=== PATIENT | male | born 1955 | race Caucasian/White ===

== ENCOUNTER 2018-08-22 09:57 | Emergency (ER) | payer BC, OTHER, SELFPAY ==
[2018-08-22 11:28] LABS: Absolute Lymphocytes (CBC) 0.6 K/uL (0.7-4.9); Absolute Monocytes 0.5 K/uL (0.1-1.3); Absolute Neutrophil 6.7 K/uL (1.8-8.0); Basophils % 0.5 % (0-1.3); Eosinophils % 0.9 % (0-4.4); Hematocrit 51.6 % (39.6-49.0); Lymphocytes % 7.4 % (15.3-44.8); MPV 7.9 fL (7.6-11.3); Monocytes % 6.7 % (3.3-12.3); RBC Red Blood Cell Count 5.98 M/uL (4.33-5.43)
[2018-08-22 11:32] LABS: Protime INR 1.04
[2018-08-22 12:20] LABS: ALT/SGPT 45 U/L (12-78); AST/SGOT 20 U/L (15-37); Albumin 3.8 g/dL (3.4-5.0); Alkaline Phosphatase 61 U/L (45-117); BUN Blood Urea Nitrogen 20 mg/dL (7-18); Bicarbonate 27 mmol/L (21-32); Bilirubin Direct 0.3 mg/dL (0-0.2); Bilirubin Total 0.8 mg/dL (0.2-1.0); Glucose Level 89 mg/dL (74-106); Potassium 4.4 mmol/L (3.5-5.1); Protein, Total 7.5 g/dL (6.4-8.2); Sodium Level 138 mmol/L (136-145)
[2018-08-22 12:40] LABS: Barbiturates NEGATIVE (NEGATIVE); Benzodiazepines NEGATIVE (NEGATIVE); Cocaine NEGATIVE (NEGATIVE); METHAMPHETAM NEGATIVE (NEGATIVE); Methadone NEGATIVE (NEGATIVE); Opiates NEGATIVE (NEGATIVE); Phencyclidine NEGATIVE (NEGATIVE); THC Cannibis NEGATIVE (NEGATIVE)
--- NOTE | 2018-08-22 13:42 | EKG ---
Test Date: 2018-08-22 Test Time: 10:59:52 [employer]: [employer] MEASUREMENT RESULTS: Intervals: Rate: 69 CO: 162 QRSD: 88 QT: 356 QTc: 381 [place]: P: 54 CO: 162 QRS: -2 T: 32 INTERPRETIVE STATEMENTS: Normal sinus rhythm Nonspecific ST abnormality Abnormal ECG Compared to ECG 01/15/2016 06:51:24 ST (T wave) deviation now present Electronically Signed On 08-22-18 13:37:49 ACCOUNTING ADMINISTRATOR by Parth Hunter
--- NOTE | 2018-08-22 13:54 | EDPHYS ---
Physician Documentation [facility] Name: Gabe Stack Age: 63 yrs Sex: Male : 1955 Arrival Date: 08/22/2018 Time: 09:59 Bed 26 Private MD: Thang Pickard E ED Physician Bailee Darden HPI: 08/22 10:59 This 63 yrs old Male presents to ER via Ambulatory with complaints of ma2 Suicidal Ideation. 11:30 This 63 yrs old Male presents to ER via Ambulatory with complaints of ma2 Suicidal Ideation. 11:30 The patient presents to the emergency department with anxiety, homicidal ideation. ma2 Onset: The symptoms/episode began/occurred gradually, 3 day(s) ago. Past psychiatric history: Prior diagnosis: depression. Associated signs and symptoms: Pertinent negatives: anxiety, depression. Associated signs and symptoms: Pertinent negatives: abdominal pain, chest pain, chills, delusions, hallucinations, homicidal ideation, palpitations, shortness of breath, substance abuse. Severity of symptoms: At their worst the symptoms were severe in the emergency department the symptoms are unchanged. Historical: - Allergies: 10:25 Codeine; aj1 - Home Meds: 10:25 lisinopril Oral [Active]; cholesterol medicine [Active]; anxiety medicine [Active]; aj1 - PMHx: 10:25 Depression; Hypertension; Anxiety; Hyperlipidemia; aj1 - PSHx: 10:25 Cholecystectomy; aj1 - Immunization history:: Flu vaccine is not up to date. - Social history:: Smoking status: Patient/guardian denies using tobacco, Patient uses Patient/guardian denies using alcohol, street drugs, The patient lives with family. - Ebola Screening: : Patient denies travel to an Ebola-affected area in the 21 days before illness onset. - Family history:: not pertinent. ROS: 11:30 Constitutional: Negative for fever, chills, and weight loss, Cardiovascular: Negative ma2 for chest pain, palpitations, and edema, Respiratory: Negative for shortness of breath, cough, wheezing, and pleuritic chest pain, Abdomen/GI: Negative for abdominal pain, nausea, diarrhea, and constipation, Skin: Negative for injury, rash, and discoloration. 11:30 Psych: Positive for anxiety, depression, suicide gesture, suicidal ideation. 11:30 All other systems are negative. Exam: 11:30 Constitutional: This is a well developed, well nourished patient who is awake, alert, ma2 and in no acute distress. Chest/axilla: Normal chest wall appearance and motion. Nontender with no deformity. No lesions are appreciated. Cardiovascular: Regular rate and rhythm with a normal S1 and S2. No gallops, murmurs, or rubs. Normal PMI, no JVD. No pulse deficits. Respiratory: Lungs have equal breath sounds bilaterally, clear to auscultation and percussion. No rales, rhonchi or wheezes noted. No increased work of breathing, no retractions or nasal flaring. Abdomen/GI: Soft, non-tender, with normal bowel sounds. No distension or tympany. No guarding or rebound. No evidence of tenderness throughout. 11:30 Psych: Behavior/mood is suicidal, depressed, Affect is calm. Vital Signs: 10:25 BP 131 / 96; Pulse 100; Resp 18; Temp 98.0; Pulse Ox 98% on R/A; Weight 84.82 kg (R); aj1 Height 6 ft. 0 in. (182.88 cm) (R); Pain 0/10; 14:39 BP 130 / 81; Pulse 81; Resp 20; Temp 98.6; Pulse Ox 99% ; lt1 10:25 Body Mass Index 25.36 (84.82 kg, 182.88 cm) aj1 MDM: 10:07 Patient medically screened. [facility] 11:49 Differential diagnosis: high risk SI, lives alone, male has gun has a plan no family, ma2 severely depressed, has no home. 13:52 Data reviewed: vital signs, nurses notes. Counseling: I had a detailed discussion with ma2 the patient and/or guardian regarding: the historical points, exam findings, and any diagnostic results supporting the discharge/admit diagnosis, the presence of at least one elevated blood pressure reading (>120/80) during this emergency department visit. ED course: accepted by dr. West to be transferred. 08/22 10:44 Order name: Acetaminophen [facility] 08/22 10:44 Order name: Basic Metabolic Panel [facility] 08/22 10:44 Order name: CBC with Diff; Complete Time: 13:51 [facility] 08/22 10:44 Order name: ETOH Level; Complete Time: 13:51 [facility] 08/22 10:44 Order name: Hepatic Function; Complete Time: 13:51 ma2 08/22 10:44 Order name: PT-INR; Complete Time: 13:51 ma2 08/22 10:35 Order name: Diet Finger Food; Complete Time: 10:36 em1 08/22 10:44 Order name: Ptt, Activated; Complete Time: 13:51 ma2 08/22 10:44 Order name: Salicylate; Complete Time: 13:51 ma2 08/22 10:44 Order name: Urine Drug Screen; Complete Time: 13:51 ma2 08/22 10:44 Order name: EKG; Complete Time: 10:45 ma2 08/22 10:44 Order name: Acetaminophen Level; Complete Time: 13:51 EDMS 08/22 10:45 Order name: Basic Metabolic Panel; Complete Time: 13:51 EDMS 08/22 12:37 Order name: Urine Dipstick--Ancillary (enter results) 08/22 10:44 Order name: EKG - Nurse/Tech; Complete Time: 11:30 ma2 08/22 10:44 Order name: IV Saline Lock; Complete Time: 11:29 ma2 08/22 10:44 Order name: Labs collected and sent; Complete Time: 11:29 ma2 08/22 10:44 Order name: Urine Dipstick-Ancillary (obtain specimen); Complete Time: 12:26 ma2 Administered Medications: No medications were administered Disposition: 08/22/18 13:53 Transfer ordered to Other Acute Care Facility. Diagnosis is Suicidal ideations. - Reason for transfer: Higher level of care. - Accepting physician is Dr. West. - Condition is Stable. - Problem is new. - Symptoms are unchanged. Signatures: Dispatcher [employer] EDKellie Hardy RN RN aj1 Bailee Darden MD MD ma2 Bessy Colon RN RN tl3 Corrections: (The following items were deleted from the chart) 15:09 13:53 08/22/2018 13:53 Transfer ordered to Other Acute Care Facility. Diagnosis is tl3 Suicidal ideations. Reason for transfer: Higher level of care. Accepting physician is Dr. West. Condition is Stable. Problem is new. Symptoms are unchanged. ma2
--- NOTE | 2018-08-22 13:54 | ER ---
Nurse's Notes [facility] Name: Gabe Stack Age: 63 yrs Sex: Male : 1955 Arrival Date: 08/22/2018 Time: 09:59 Bed 26 Private MD: Thang Pickard E Diagnosis: Suicidal ideations Presentation: 08/22 10:21 Presenting complaint: Patient states: He went to the doctor today to get something to aj help him sleep. Reports that he has been struggling with anxiety and depression for years now. States "I just get to the point where I want to give up, shoot myself" Reports that he started taking anxiety medication a month ago but it has not helped him. Patient also reports difficulty sleeping, states that he has only been getting 4 hours a night, then he wakes up and is unable to get back to sleep. Transition of care: patient was not received from another setting of care. Onset of symptoms was 2018. Risk Assessment: Do you want to hurt yourself or someone else? Patient reports desire/thoughts of hurting themselves or someone else. Provider notified. Initial Sepsis Screen: Does the patient meet any 2 criteria? No. Patient's initial sepsis screen is negative. Does the patient have a suspected source of infection? No. Patient's initial sepsis screen is negative. Care prior to arrival: None. 10:21 Method Of Arrival: Ambulatory [facility] 10:21 Acuity: WAI 2 aj1 Triage Assessment: 10:25 General: Appears in no apparent distress. Behavior is cooperative, anxious, crying. aj1 Pain: Denies pain. Historical: - Allergies: 10:25 Codeine; aj1 - Home Meds: 10:25 lisinopril Oral [Active]; cholesterol medicine [Active]; anxiety medicine [Active]; aj1 - PMHx: 10:25 Depression; Hypertension; Anxiety; Hyperlipidemia; aj1 - PSHx: 10:25 Cholecystectomy; aj1 - Immunization history:: Flu vaccine is not up to date. - Social history:: Smoking status: Patient/guardian denies using tobacco, Patient uses Patient/guardian denies using alcohol, street drugs, The patient lives with family. - Ebola Screening: : Patient denies travel to an Ebola-affected area in the 21 days before illness onset. - Family history:: not pertinent. Screenin:28 Abuse screen: Denies threats or abuse. Denies injuries from another. Nutritional aj1 screening: No deficits noted. Tuberculosis screening: No symptoms or risk factors identified. Assessment: 10:28 General: Appears in no apparent distress. Behavior is cooperative, anxious, crying. aj1 Pain: Denies pain. Neuro: Level of Consciousness is awake, alert, obeys commands, Oriented to person, place, time, situation. Cardiovascular: Patient's skin is warm and dry. Respiratory: Airway is patent Respiratory effort is even, unlabored, Respiratory pattern is regular, symmetrical. GI: No signs and/or symptoms were reported involving the gastrointestinal system. : No signs and/or symptoms were reported regarding the genitourinary system. EENT: No signs and/or symptoms were reported regarding the EENT system. Derm: No signs and/or symptoms reported regarding the dermatologic system. Skin is pink, warm \\T\\ dry. normal. Musculoskeletal: No signs and/or symptoms reported regarding the musculoskeletal system. Circulation, motion, and sensation intact. 11:30 Reassessment: Patient appears in no apparent distress at this time. No changes from aj1 previously documented assessment. Patient and/or family updated on plan of care and expected duration. Pain level reassessed. Patient is alert, oriented x 3, equal unlabored respirations, skin warm/dry/pink. 12:28 Reassessment: Patient appears in no apparent distress at this time. No changes from aj1 previously documented assessment. Patient and/or family updated on plan of care and expected duration. Pain level reassessed. Patient is alert, oriented x 3, equal unlabored respirations, skin warm/dry/pink. Patient is resting comfortably. 13:52 Reassessment: Nurse to nurse report given to BONNIE Lui at [facility]. aj1 Psych: 10:27 Subjective: Patient's mood is sad, hopeless. Objective: Patient is cooperative, Speech aj1 is slow, soft, Affect is appropriate. Interventions: Removed personal items and placed in bag. Patient placed in hospital gown. Searched person for dangerous items. Belonging list filled out. Suicide Risk Assessment: Sad Person Scale: Sex of patient: Male: Score 1 point. Age of patient: Score 0 point if patient falls outside of specified age parameters. Depression: Score 1 point if signs of depression are present. Previous Attempt: Score 0 point if patient has not previously attempted suicide. Substance Abuse: Score 0 point if patient does not abuse alcohol or drugs. Rational Thinking: Score 0 point if patient has rational thinking. Social Support: Score 1 point if social support is lacking and/or unavailable. Organized Plan: Score 1 point if patient had a plan in place. Relationship: Score 1 point if patient is , , , or for a single male Chronic Sickness: Score 0 point if patient does not have a chronic illness, debilitating, or severe disorder. TOTAL POINTS: If total points are 5-6, proposed clinical action is to strongly consider hospitalization, depending upon confidence in the follow-up arrangement. Implement suicide precautions. Safety Checks: Personal items have been removed. Door is open. No visitors are present at this time. Pt denies substance abuse. Commitment: Patient will be a voluntary commitment. Vital Signs: 10:25 BP 131 / 96; Pulse 100; Resp 18; Temp 98.0; Pulse Ox 98% on R/A; Weight 84.82 kg (R); aj1 Height 6 ft. 0 in. (182.88 cm) (R); Pain 0/10; 14:39 BP 130 / 81; Pulse 81; Resp 20; Temp 98.6; Pulse Ox 99% ; lt1 10:25 Body Mass Index 25.36 (84.82 kg, 182.88 cm) aj1 ED Course: 09:59 Patient arrived in ED. mr 10:00 Thang Pickard MD is Private Physician. mr 10:07 Bailee Darden MD is Attending Physician. ma2 10:21 Kellie Jules, BONNIE is Primary Nurse. aj1 10:24 Triage completed. aj1 10:25 Arm band placed on Patient placed in an exam room. aj1 10:28 Patient has correct armband on for positive identification. Placed in gown. Bed in low aj1 position. Patient is placed in psych hold. 10:28 No provider procedures requiring assistance completed. aj1 10:34 Safety checks: Items removed: yes. Door open/sign placed on door: yes. Family/friend em1 present: no. Sitter present: Yes. Warm blanket given. Pillow given. Diet tray ordered. 10:47 Safety checks: Items removed: yes. Door open/sign placed on door: yes. Family/friend em1 present: no. Sitter present: Yes. 10:59 Safety checks: Items removed: yes. Door open/sign placed on door: yes. Family/friend em1 present: no. Sitter present: Yes. 11:17 Safety checks: Items removed: yes. Door open/sign placed on door: yes. Family/friend em1 present: no. Sitter present: Yes. 11:17 Initial lab(s) drawn, by me, sent to lab. Inserted saline lock: 20 gauge in right em1 antecubital area, using aseptic technique. Blood collected. 11:25 EKG done, by ultrasound technol. reviewed by Bailee Darden MD. at1 11:30 Safety checks: Items removed: yes. Door open/sign placed on door: yes. Family/friend em1 present: no. Sitter present: Yes. 11:47 Safety checks: Items removed: yes. Door open/sign placed on door: yes. Family/friend em1 present: no. Sitter present: Yes. 12:05 Safety checks: Items removed: yes. Door open/sign placed on door: yes. Family/friend em1 present: no. Sitter present: Yes. 12:15 Safety checks: Items removed: yes. Door open/sign placed on door: yes. Family/friend em1 present: no. Sitter present: Yes. 12:30 Safety checks: Items removed: yes. Door open/sign placed on door: yes. Family/friend em1 present: no. Sitter present: Yes. 12:36 Diet tray given. em1 12:46 Safety checks: Items removed: yes. Door open/sign placed on door: yes. Family/friend em1 present: no. Sitter present: Yes. 13:00 Safety checks: Items removed: yes. Safety checks: Door open/sign placed on door: yes. lt1 Family/friend present: no. Sitter present: Yes. 13:15 Safety checks: Items removed: yes. Safety checks: Door open/sign placed on door: yes. lt1 Family/friend present: no. Sitter present: Yes. 13:27 faxed chart to hal prasad, talked to Aneta. bd 13:28 contacted [facility] to send a screener to evaluate pt. bd 13:30 Safety checks: Items removed: yes. Door open/sign placed on door: yes. Family/friend lt1 present: no. Sitter present: Yes. 13:45 Safety checks: Items removed: yes. Safety checks: Door open/sign placed on door: yes. lt1 Family/friend present: no. Sitter present: Yes. 14:00 Safety checks: Items removed: yes. Door open/sign placed on door: yes. Family/friend lt1 present: yes. Sitter present: Yes. 14:15 Safety checks: Items removed: yes. Door open/sign placed on door: yes. Family/friend lt1 present: no. Sitter present: Yes. 14:30 Safety checks: Items removed: yes. Door open/sign placed on door: yes. Family/friend lt1 present: no. Sitter present: Yes. 14:45 Safety checks: Items removed: yes. Door open/sign placed on door: yes. Family/friend lt1 present: no. Sitter present: Yes. 14:52 Report given to BONNIE Pollack. aj1 15:00 Safety checks: Items removed: yes. Safety checks: Door open/sign placed on door: yes. lt1 Family/friend present: no. Sitter present: Yes. Administered Medications: No medications were administered Outcome: 13:53 ER care complete, transfer ordered by . xenia 15:09 Patient left the ED. tl3 Signatures: Mayra Hidalgo Angela, RN RN aj1 Adalberto, Billie Leach, Eleno 1 Jen Lance, golf player assistant EKG Tat1 Bailee Darden MD MD ma2 Bessy Colon RN RN tl3 Carlotta Avalos lt1 Corrections: (The following items were deleted from the chart) 13:01 01:00 Safety checks: Items removed: yes. Door open/sign placed on door: yes. lt1 Family/friend present: no. Sitter present: Yes. lt1
[2018-08-22 14:45] LABS: Urine Blood NEGATIVE (NEG); Urine Glucose NEGATIVE (NEG); Urine Protein NEGATIVE (NEG); Urine Specific Gravity 1.025 (1.005-1.030); Urine pH 5.5 (5.0-7.0)
[2018-08-22 16:49] VITALS: BP 130/81; TEMP 98.6; O2SAT 99
== END 2018-08-22 15:09 ==
LOC: ER 09:57
DX: R45.851 Suicidal ideations (principal); R45.850 Homicidal ideations; F41.9 Anxiety disorder, unspecified; F32.9 Major depressive disorder, single episode, unspecified; I10 Essential (primary) hypertension; E78.5 Hyperlipidemia, unspecified; Z88.5 Allergy status to narcotic agent
CPT/HCPCS: 36415; 80048; 80076; 80307; 80320; 80329; 81003; 85025; 85610; 85730; 93005; 99284

== ENCOUNTER 2020-08-27 09:30 | Day surgery (SDC) | payer OTHER ==
[2020-08-22 12:04] LABS: Absolute Lymphocytes (CBC) 1.1 K/uL (0.7-4.9); Basophils % 0.6 % (0-1.3); Hematocrit 49.5 % (39.6-49.0); Lymphocytes % 16.2 % (15.3-44.8); MPV 7.9 fL (7.6-11.3); Protime INR 1.01; RBC Red Blood Cell Count 5.65 M/uL (4.33-5.43)
[2020-08-22 12:17] LABS: Potassium 4.4 mmol/L (3.5-5.1)
--- NOTE | 2020-08-22 12:30 | RAD REPORT ---
EXAM DESCRIPTION: RAD - Chest Pa And Lat (2 Views) - 08/22/2020 11:33 am CLINICAL HISTORY: pre procedure, pending bladder stone removal procedure COMPARISON: Portable December 2015 TECHNIQUE: Frontal and lateral views of the chest were obtained. FINDINGS: The lungs are clear. Interstitial pattern matches comparison. Diaphragm is flattened. Hea rt size is normal and central vasculature is within normal limits. No pleural effusion or pneumothor ax seen. No acute bony finding noted. No aortic abnormality. No suspicious change from comparison . IMPRESSION: No acute cardiopulmonary process.
[~2020-08-27 09:30] MED LIST: AMPICILLIN SODIUM 2 GM in NA CHLORIDE 0.9% 100 ML IVPB SCH; Gentamicin Inj 240 MG in NA CHLORIDE 0.9% 100 ML IV SCH
[2020-08-27] MEDS ORDERED: Ringers Lactate 1,000 ML IV ONE ×2 (10:39→12:53)
[2020-08-27] MEDS ORDERED: FENTANYL CITR 100 MCG/2 ML ONE ×2 (11:09→12:33)
[2020-08-27] MEDS ORDERED: propofoL 200 MG/20 ML VIAL IV ONE (11:09)
[2020-08-27] MEDS ORDERED: MIDAZOLAM HCL 2 MG/2 ML INJ ONE (11:09)
[2020-08-27] MEDS ORDERED: LIDOCAINE 1% MPF 2 ML AMPULE ONE (11:13)
[2020-08-27] MEDS ORDERED: EPHEDRINE SULF 50 MG/ML VIAL ONE (12:50)
[2020-08-27] MEDS ORDERED: ROCURONIUM 50 MG/5 ML VIAL IV ONE (13:01)
[2020-08-27] MEDS ORDERED: Phenylephrine HCl 10 MG/ML 1 ML VIAL ONE (13:11)
[2020-08-27] MEDS ORDERED: NS 0.9% VIAL 10 ML ONE (13:11)
[2020-08-27] MEDS ORDERED: GLYCOPYRROLATE 0.2 MG/ML SYR ONE (14:09)
[2020-08-27] MEDS ORDERED: NEOSTIGMINE 1 MG/ML -5 ML ONE (14:11)
[2020-08-27] MEDS ORDERED: KETOROLAC 30 MG/ML INJ ONE (14:18)
[2020-08-27] MEDS ORDERED: dexAMETHasone 10 MG/ML VIAL ONE (14:18)
[2020-08-27] MEDS: MEPERIDINE HCL 25 MG/ML SYR ONE ×2 (14:19→14:24)
[2020-08-27] MEDS ORDERED: Oxycodone HCl/Acetaminophen 1 TAB TAB PO PRN (14:20)
[2020-08-27] MEDS ORDERED: ONDANSETRON 4 MG/2 ML VIAL ONE (14:31)
[2020-08-27 14:48] VITALS: BP 117/70
[2020-08-27] MEDS ORDERED: OPIUM/BELLADONNA SUPPOS (30-16.2 MG) PR ONE (15:03)
[2020-08-27 16:03] VITALS: TEMP 97; O2SAT 97
[2020-08-27] MEDS ORDERED: HYDROCODONE/APAP 7.5/325 MG TAB ONE (16:06)
--- NOTE | 2020-08-27 21:32 | OP ---
Surgeon: CARLOS LEROY Preoperative Diagnoses: 1. Benign prostatic hypertrophy with obstructive lower urinary tract symptoms. 2. Bladder calculi, number greater than 8 seen, largest approximately 1.5-2 cm in diameter, total volume greater than 12-15 cm of stone burden. Postoperative Diagnoses: 1. Benign prostatic hypertrophy with obstructive lower urinary tract symptoms. 2. Bladder calculi, number greater than 8 seen, largest approximately 1.5-2 cm in diameter, total volume greater than 12-15 cm of stone burden. Principle Procedures: 1. Holmium laser cystolitholapaxy. 2. Bipolar transurethral resection of the prostate. Indication For Procedure: Mr. Stack presented to [facility]rology Clinic with elevated PSA and bothersome lower urinary symptoms. He did not improve significantly with medical therapy and so underwent a cystoscopy, which revealed the presence of massive four lobar BPH with intravesical projection abutting the ureteral orifices and the presence of multiple bladder calculi as well as a left lateral wall bladder diverticulum, which housed several of the calculi. He was counseled on the need for surgical approach, and after a prostate biopsy confirmed the absence of malignancy, he was prepared to proceed today. Procedure In Detail: The patient was consented in the preoperative holding area before being transferred to the operative suite where general anesthesia was induced. He was given ampicillin and gentamicin IV antimicrobial prophylaxis and pneumo boots were provided for DVT prophylaxis. He was placed in the lithotomy position, padded and secured to the table appropriately. His genitalia were prepped using Hibiclens and he was draped in standard fashion. The case was begun using urethral sounds to dilate the meatus and fossa navicularis to 30-Rwandan. Then, using a visual obturator, the 26-Rwandan Olympus bipolar resectoscope sheath was inserted via the urethra and up and over a significantly elevated median bar in order to enter the bladder alongside the intravesically projecting median lobe. The bladder was briefly surveyed, and as had been previously noted, there were multiple bladder calculi. The largest about 2 cm in diameter and so many calculi that the total stone volume was likely greater than 12-15 cm. Additionally, within the diverticulum in the left lateral wall, there were multiple additional stones noted. Initially to use the stone thermal molder device, the stones were so hard that they caused the stone pressure device to break. As a result, I employed the holmium laser with a 550 nm laser fiber and power settings of 1 joule and 25 Hz in order to fragment the larger stones. Once the larger stones were fragmented and I progressed toward the diverticulum where the more moderately and smaller sized stones were sitting, I decreased the power to 0.3 joules and 25 Hz to completely dust those stones. Multiple rounds of cystolitholapaxy as well as Ellik evacuation of the stone material was required before his bladder was completely freed of stone. In fact, before I could complete removing the stones because the median lobe would deflect rather the laser fiber out of the line of direction desired, I had to employ the bipolar resection loop in order to remove the intravesical component of the median lobe before I could complete fragmenting all of the stones. However, once this was done, I then turned my attention back to the bipolar TURP. Then using the large thick bipolar loop, I then resected the entirety of the median bar down to the level of the verumontanum and removed the right lateral lobe as well as right lateral anterior overhang fulgurating along the way. I then resected the left lateral lobe and any left lateral anterior overhang. At the level of the verumontanum, any intraurethral projecting component of the lateral lobes was resected until a nice trough could be seen from the verumontanum into the bladder neck. All prostate chips were Ellik evacuated from the bladder, and the entire surface of the prostatic fossa was carefully fulgurated with the bladder decompressed and the prostate fossa not stretched in order to cauterize any bleeding. Again, due to the significant size of his prostate, 95 g, it took several minutes of resection in order to completely adequately open the fossa. However, once this was done, the clinical appearance was excellent. As a result, with his bladder filled again with saline, I placed a 24-Rwandan 3-way Matos catheter into his bladder with ease with 50 cc of sterile water in the balloon. The catheter was placed to traction and he was taken out of the lithotomy position before being awakened from general anesthesia. He was then transferred to a stretcher and to the recovery room in good condition. Complications: None. Discharge Disposition: He will be discharged home to continue on his course of Augmentin antimicrobial prophylaxis prescribed preoperatively. He will also be given a prescription for Percocet for pain management. He should follow up on either Wednesday or Wednesday at his discretion for a voiding trial with nurse practitioner, Hernan in the office and subsequently with me 1-2 weeks later or 3 weeks later for discussion of the pathology of the resection and interval assessment. ADELA/SAMANTHA Voice ID: [id number] Report ID: [id number] MTDD
== END 2020-08-27 17:00 | disposition home or self-care (01) ==
LOC: OR 09:30
PROVIDERS: ATTEND Urology
PROC: 0TCB8ZZ Extirpation of Matter from Bladder, Via Natural or Artificial Opening Endoscopic (ICD-10-PCS; principal; 2020-08-27 11:15)
PROC: 0VT08ZZ Resection of Prostate, Via Natural or Artificial Opening Endoscopic (ICD-10-PCS; 2020-08-27 11:15)
DX: N40.1 Benign prostatic hyperplasia with lower urinary tract symptoms (principal); N21.0 Calculus in bladder; Z20.822 Contact with and (suspected) exposure to COVID-19
CPT/HCPCS: 93005; 87088; 85025; 87086; 80048; 36415; 85610; 88300; 88305; 87077; 87186; 82360; 71046; 52318; 52601; U0002; J2704; J2370; J1580; J2250; J3010 ×2; J1100; J2175; J2001; J2710; J7120 ×2; J2405; J0290

== ENCOUNTER 2021-02-24 09:56 | Observation (INO) | payer OTHER ==
--- OUTSIDE RECORDS SUMMARY | 2021-02-24 10:00 | XMS REPORT | Continuity of Care Document ---
:1955 Author Organization [facility] t Address [address] [place] [address] Care Team Providers Name Role Phone Nasreen YAP Attending Clinician Problems This patient has no known problems. Allergies, Adverse Reactions, Alerts Allergy Allergy Status Severity Reaction(s) Onset Inactive Treating Comm ents Source Name Type Date Date Clinician codiene Adverse Active Info Not [facility] Reaction Available [facility] Medications Ordered Filled Start Stop Current Ordering Indication Dosage Frequency Signature Comments Components Source Medication Medication Date Date Medication? Clinician (SIG) Name Name Lisinopril Lisinopril Yes Allison [address] [facility] Sertraline Sertraline Yes Allison [address] [facility] HCl HCl [facility] Trazodone Trazodone Yes Allison [address] [facility] HCl HCl Baylis at bedtime [facility] Procedures This patient has no known procedures. Encounters Start End Encounter Admission Attending Care Care Encounter Source Date/Time Date/Time Type Type Clinicians Facility Department ID 2021-01-22 2021-01-22 Outpatient [facility] [id number] [facility] 2021-01-20 2021-01-20 [facility] [id number] 2020-10-03 2020-10-03 Out[facility] [id number] [facility] 2020-09-27 2020-09-27 Outpatient [facility] [id number] [facility] 2020-09-05 2020-09-05 Outpatient [facility] [id number] [facility] 2020-09-03 2020-09-03 Outpatient [facility] [id number] [facility] 2020-09-02 2020-09-02 Outpatient [facility] [id number] [facility] 2020-08-30 2020-08-30 Outpatient [facility] [id number] [facility] 2020-08-12 2020-08-12 Outpatient [facility] [id number] [facility] 2020-08-01 2020-08-01 Outpatient [facility] [id number] [facility] 2020-07-31 2020-07-31 Outpatient [facility] [id number] [facility] 2020-07-15 2020-07-15 Outpatient [facility] [id number] [facility] 2020-07-11 2020-07-11 Outpatient [facility] [id number] [facility] 2020-06-27 2020-06-27 Outpatient [facility] [id number] [facility] 2020-06-17 2020-06-17 Outpatient [facility] [id number] [facility] 2020-06-06 2020-06-06 Outpatient [facility] [id number] [facility] 2020-05-20 2020-05-20 Outpatient [facility] [id number] [facility] 2020-05-13 2020-05-13 Outpatient [facility] [id number] [facility] 2020-05-06 2020-05-06 Outpatient [facility] [id number] [facility] 2020-04-04 2020-04-04 Outpatient [facility] [id number] [facility] 2020-02-29 2020-02-29 [facility] [id number] [facility] 09:46[facility]00 09:46:00 t [facility] 2020-02-22 2020-02-22 [facility] [id number] [facility] 08:13:00 08:13:00 t Specialty/[facility]rology [facility] l [facility] Out[facility] Clin[facility] 2020-02-20 2020-02-20 [facility] [id number] [facility] 13:15:00 13:15:00 t Specialty/[facility] - [facility]rology [facility] l [facility] Out[facility] ent Clin[facility] 2020-02-13 2020-02-13 [facility] [id number] [facility] 13:45:00 13:45:00 t Specialty/[facility] - [facility]Urology Clinic l Clinic Outpati ent Clinics 2019-03-31 2019-03-31 Office Jack Downey [id number] 13:00:31 16:04:12 Visit AMBULATOR [id number] Results This patient has no known results.
[2021-02-24] MEDS ORDERED: ONDANSETRON 4 MG/2 ML VIAL ONE ×3 (10:48→18:24)
[2021-02-24] MEDS ORDERED: MORPHINE 4 MG/ML SYR ONE (10:48)
[2021-02-24] MEDS ORDERED: NA CHLORIDE 0.9% 1,000 ML ONE ×2 (11:01→20:11)
--- NOTE | 2021-02-24 11:13 | ER ---
Nurse's Notes [facility] Name: Gabe Stack Age: 65 yrs Sex: Male : 1955 Arrival Date: 02/24/2021 Time: 10:00 Bed 23 Private MD: Diagnosis: Disorder of penis, unspecified-ischemic, constricting object, removed;UTI/ Urinary tract infection, site not specified Presentation: 02/24 10:16 Chief complaint: Patient states: Metal ring stuck around genitals x 4 hours. ss Coronavirus screen: Client denies travel out of the [place] in the last 14 days. Ebola Screen: Patient denies exposure to infectious person. Patient denies travel to an Ebola-affected area in the 21 days before illness onset. Initial Sepsis Screen: Does the patient meet any 2 criteria? No. Patient's initial sepsis screen is negative. Does the patient have a suspected source of infection? No. Patient's initial sepsis screen is negative. Risk Assessment: Do you want to hurt yourself or someone else? Patient reports no desire to harm self or others. Onset of symptoms was February 24, 2021. 10:16 Method Of Arrival: Ambulatory ss 10:16 Acuity: WAI 2 ss Historical: - Allergies: 10:21 Codeine; ss - PMHx: 10:21 Anxiety; Depression; Hyperlipidemia; Hypertension; ss - Immunization history:: Adult Immunizations up to date. - Social history:: Smoking status: Patient denies any tobacco usage or history of. - Family history:: not pertinent. Screenin:35 Abuse screen: Denies threats or abuse. Nutritional screening: No deficits noted. vg1 Tuberculosis screening: No symptoms or risk factors identified. Fall Risk No fall in past 12 months (0 pts). No secondary diagnosis (0 pts). IV access (20 points). Ambulatory Aid- None/Bed Rest/Nurse Assist (0 pts). Gait- Normal/Bed Rest/Wheelchair (0 pts) Mental Status- Oriented to own ability (0 pts). Total Christina Fall Scale indicates No Risk (0-24 pts). Assessment: 10:33 General: Appears in no apparent distress. uncomfortable, Behavior is cooperative, vg1 anxious. Pain: Complains of pain in groin Pain currently is 10 out of 10 on a pain scale. Noted to be grimacing, guarding, moaning. Neuro: Level of Consciousness is awake, alert, obeys commands, Oriented to person, place, time, situation. Cardiovascular: Patient's skin is warm and dry. Respiratory: Airway is patent Respiratory effort is even, unlabored, Respiratory pattern is symmetrical, tachypnea. GI: No signs and/or symptoms were reported involving the gastrointestinal system. : Swelling noted on penis. EENT: No signs and/or symptoms were reported regarding the EENT system. Derm: Skin is purple on head of penis. Musculoskeletal: Circulation, motion, and sensation intact. 12:42 Reassessment: No changes from previously documented assessment. Patient is alert, vg1 oriented x 3, equal unlabored respirations, skin warm/dry/pink. 13:34 Reassessment: Dr. Warren consulting with physician at [facility]. 13:53 Reassessment: Patient appears in no apparent distress at this time. Patient and/or vg1 family updated on plan of care and expected duration. Pain level reassessed. Patient is alert, oriented x 3, equal unlabored respirations, skin warm/dry/pink. Pt states penis feels sore but tolerable. Penis appears to have slight swelling, color is pink. 15:12 Reassessment: Patient is alert/active/playful, equal unlabored respirations, skin aj2 warm/dry/pink. Patient states symptoms have improved. General: Appears comfortable, well groomed, well nourished. Pain: Denies pain. 18:18 Reassessment: Patient appears in no apparent distress at this time. Resting in bed with aj2 0.9%NS infusing. Reports penile pain 5/5 ; Dilaudid given as ordered. Denies any other complaints at this time. Awaiting a bed assignment. Nursing staff will continue to monitor.. Vital Signs: 10:16 BP 151 / 111; Pulse 123; Resp 22; Temp 98.6(TE); Pulse Ox 95% on R/A; Weight 90.72 kg; ss Height 6 ft. 0 in. (182.88 cm); Pain 9/10; 12:50 BP 121 / 74; Pulse 95; Resp 18; Pulse Ox 96% on R/A; vg1 13:53 BP 107 / 58 Supine; Pulse 77; Resp 16; Pulse Ox 96% ; vg1 15:12 BP 129 / 77; Pulse 64; Resp 18; Temp 97.8; aj2 15:15 Pulse Ox 100% ; aj2 18:16 BP 148 / 84; Pulse 74; Resp 20; Temp 97.6; Pulse Ox 100% ; aj2 10:16 Body Mass Index 27.12 (90.72 kg, 182.88 cm) ED Course: 10:00 Patient arrived in ED. ds1 10:12 Zackary Warren MD is Attending Physician. fausto 10:16 Lizzeth Paredes, RN is Primary Nurse. vg1 10:21 Triage completed. ss 10:21 Arm band placed on right wrist. ss 10:27 Inserted saline lock: 20 gauge in right antecubital area, using aseptic technique. vg1 10:36 Patient has correct armband on for positive identification. Placed in gown. Bed in low vg1 position. Call light in reach. 10:36 No provider procedures requiring assistance completed. vg1 11:28 initiated transfer to [facility]. bd 11:32 pt denied at [facility] due to all campus on saturation. bd 11:42 initiated transfer to [facility]. bd 11:50 initiated transfer to [facility]. bd 11:52 pt denied at [facility] due to being on level 1 saturation,per Jacob. bd 11:52 initiated transfer to [facility]. bd 12:06 pt denied due to all [facility] being on saturation. bd 13:11 Matos cath inserted, using sterile technique, 16 Fr., by ED staff, balloon inflated, to vg1 gravity drainage, urine specimen collected. returned ysabel urine. Patient tolerated well. 13:35 Bailee Pryor MD is Hospitalizing Provider. fausto 13:50 Initial lab(s) drawn, by ks, sent to lab. COVID swab sent to lab. vg1 15:15 No apparent distress. aj2 15:15 IV Flushed right. aj2 18:18 Awaiting bed assignment. aj2 18:18 IV is patent, is intact. aj2 02/25 07:22 Primary Nurse role handed off by Lizzeth Paredes, RN bd 07:25 Link Anaya is Primary Nurse. aj2 Administered Medications: 02/24 10:29 Drug: Zofran (Ondansetron) 4 mg Route: IVP; Site: right antecubital; vg1 13:55 Follow up: Response: No adverse reaction vg1 10:31 Drug: morphine 4 mg Route: IVP; Site: right antecubital; vg1 13:54 Follow up: Response: No adverse reaction; No change in condition vg1 10:39 Drug: NS 0.9% 1000 ml Route: IV; Rate: 125 ml/hr; Site: right antecubital; vg1 11:35 Drug: Zofran (Ondansetron) 4 mg Route: IVP; Site: right antecubital; vg1 13:55 Follow up: Response: No adverse reaction vg1 11:37 Drug: Dilaudid (HYDROmorphone) 1 mg Route: IVP; Site: right antecubital; vg1 13:55 Follow up: Response: No adverse reaction; Pain is decreased vg1 12:42 Drug: Ancef (cefazolin) 1 grams Route: IVPB; Site: right antecubital; vg1 13:54 Follow up: Response: No adverse reaction vg1 13:54 Follow up: IV Status: Completed infusion vg1 13:11 Drug: Viscous Lidocaine Liquid (4 %) 5 ml Route: Mucous Membrane; vg1 18:11 Drug: Zofran (Ondansetron) 4 mg Route: IVP; Site: right antecubital; aj2 18:12 Drug: Dilaudid (HYDROmorphone) 1 mg Route: IVP; Site: right antecubital; aj2 Outcome: 11:13 ER care complete, transfer ordered by . [facility] 13:54 Decision to Hospitalize by Provider. [facility] 02/25 14:32 Patient left the ED. Signatures: Mayra Hidalgo Corey, MD MD cha Sanford, Demi ds1 Monica Yan RN RN Lizzeth Carter RN RN vg1 Link Anaya aj2 Corrections: (The following items were deleted from the chart) 02/24 13:57 13:53 Reassessment: Patient appears in no apparent distress at this time. Patient vg1 and/or family updated on plan of care and expected duration. Pain level reassessed. Patient is alert, oriented x 3, equal unlabored respirations, skin warm/dry/pink. Pt states penis feels sore but tolerable. vg1
--- NOTE | 2021-02-24 11:13 | EDPHYS ---
Physician Documentation [facility] Name: Gabe Stack Age: 65 yrs Sex: Male : 1955 Arrival Date: 02/24/2021 Time: 10:00 Bed 23 Private MD: ED Physician Zackary Warren HPI: 02/24 11:06 This 65 yrs old Male presents to ER via Ambulatory with complaints of FB fausto Stuck on Penis. 11:06 The patient presents with RING ON PENIS, ISCHEMIC. Onset: The symptoms/episode fausto began/occurred 4 hour(s) ago. Modifying factors: The symptoms are alleviated by nothing, the symptoms are aggravated by nothing. Associated signs and symptoms: Pertinent positives: PAIN. Severity of symptoms: At their worst the symptoms were severe, in the emergency department the symptoms are unchanged. The patient has not experienced similar symptoms in the past. Historical: - Allergies: 10:21 Codeine; ss - PMHx: 10:21 Anxiety; Depression; Hyperlipidemia; Hypertension; ss - Immunization history:: Adult Immunizations up to date. - Social history:: Smoking status: Patient denies any tobacco usage or history of. - Family history:: not pertinent. ROS: 11:06 Constitutional: Negative for fever, chills, and weight loss, Eyes: Negative for injury, fausto pain, redness, and discharge, ENT: Negative for injury, pain, and discharge, Neck: Negative for injury, pain, and swelling, Cardiovascular: Negative for chest pain, palpitations, and edema, Respiratory: Negative for shortness of breath, cough, wheezing, and pleuritic chest pain, Abdomen/GI: Negative for abdominal pain, nausea, vomiting, diarrhea, and constipation, Back: Negative for injury and pain, MS/Extremity: Negative for injury and deformity, Skin: Negative for injury, rash, and discoloration, Neuro: Negative for headache, weakness, numbness, tingling, and seizure, Psych: Negative for depression, anxiety, suicide ideation, homicidal ideation, and hallucinations, Allergy/Immunology: Negative for hives, rash, and allergies, Endocrine: Negative for neck swelling, polydipsia, polyuria, polyphagia, and marked weight changes, Hematologic/Lymphatic: Negative for swollen nodes, abnormal bleeding, and unusual bruising. 11:06 : Positive for ISCHEMIC HEAD OF PENIS,LARGE METAL RING AROUND DIST PENIS. Exam: 11:06 Constitutional: This is a well developed, well nourished patient who is awake, alert, fausto and in no acute distress. Head/Face: Normocephalic, atraumatic. Eyes: Pupils equal round and reactive to light, extra-ocular motions intact. Lids and lashes normal. Conjunctiva and sclera are non-icteric and not injected. Cornea within normal limits. Periorbital areas with no swelling, redness, or edema. ENT: Nares patent. No nasal discharge, no septal abnormalities noted. Tympanic membranes are normal and external auditory canals are clear. Oropharynx with no redness, swelling, or masses, exudates, or evidence of obstruction, uvula midline. Mucous membranes moist. Neck: Trachea midline, no thyromegaly or masses palpated, and no cervical lymphadenopathy. Supple, full range of motion without nuchal rigidity, or vertebral point tenderness. No Meningismus. Chest/axilla: Normal chest wall appearance and motion. Nontender with no deformity. No lesions are appreciated. Cardiovascular: Regular rate and rhythm with a normal S1 and S2. No gallops, murmurs, or rubs. Normal PMI, no JVD. No pulse deficits. Respiratory: Lungs have equal breath sounds bilaterally, clear to auscultation and percussion. No rales, rhonchi or wheezes noted. No increased work of breathing, no retractions or nasal flaring. Abdomen/GI: Soft, non-tender, with normal bowel sounds. No distension or tympany. No guarding or rebound. No evidence of tenderness throughout. Back: No spinal tenderness. No costovertebral tenderness. Full range of motion. Skin: Warm, dry with normal turgor. Normal color with no rashes, no lesions, and no evidence of cellulitis. MS/ Extremity: Pulses equal, no cyanosis. Neurovascular intact. Full, normal range of motion. Neuro: Awake and alert, GCS 15, oriented to person, place, time, and situation. Cranial nerves II-XII grossly intact. Motor strength 5/5 in all extremities. Sensory grossly intact. Cerebellar exam normal. Normal gait. Psych: Awake, alert, with orientation to person, place and time. Behavior, mood, and affect are within normal limits. 11:06 : CVA tenderness, is absent, Male external genitalia: normal, Bladder: is normal, Sexual behavior: not applicable. Vital Signs: 10:16 BP 151 / 111; Pulse 123; Resp 22; Temp 98.6(TE); Pulse Ox 95% on R/A; Weight 90.72 kg; ss Height 6 ft. 0 in. (182.88 cm); Pain 9/10; 12:50 BP 121 / 74; Pulse 95; Resp 18; Pulse Ox 96% on R/A; vg1 13:53 BP 107 / 58 Supine; Pulse 77; Resp 16; Pulse Ox 96% ; vg1 15:12 BP 129 / 77; Pulse 64; Resp 18; Temp 97.8; aj2 15:15 Pulse Ox 100% ; aj2 18:16 BP 148 / 84; Pulse 74; Resp 20; Temp 97.6; Pulse Ox 100% ; aj2 10:16 Body Mass Index 27.12 (90.72 kg, 182.88 cm) ss MDM: 10:12 Patient medically screened. [facility] 11:10 Data reviewed: vital signs, nurses notes, lab test result(s), CBC, electrolytes. Data fausto interpreted: classroom monitor: rate is 123 beats/min, rhythm is regular, Pulse oximetry: on room air is 95 %. Counseling: I had a detailed discussion with the patient and/or guardian regarding: the historical points, exam findings, and any diagnostic results supporting the discharge/admit diagnosis, lab results, the need to transfer to another facility, for higher level of care, [facility] does not immediately have the required specialist. Physician consultation: Aurelio Diaz MD after a discussion of the case, a recommendation for transfer for higher level of care is made, NOTHING CAN BE DONE HERE, NEEDS UROLOGY AND ORTHO. 02/24 10:29 Order name: CBC with Diff [facility] 02/24 10:29 Order name: Comprehensive Metabolic Panel [facility] 02/24 13:13 Order name: Urine Culture [facility] 02/24 13:13 Order name: Urine Culture [facility] 02/24 13:19 Order name: Urine Dipstick-Ancillary [facility] 02/24 14:08 Order name: CBC Smear Scan [facility] 02/24 16:22 Order name: SARS-COV-2 RT PCR [facility] 02/24 10:29 Order name: NPO; Complete Time: 10:33 [facility] 02/24 11:23 Order name: Ice pack; Complete Time: 12:23 fausto 02/24 12:56 Order name: Carlo; Complete Time: 12:57 fausto Administered Medications: 10:29 Drug: Zofran (Ondansetron) 4 mg Route: IVP; Site: right antecubital; vg1 13:55 Follow up: Response: No adverse reaction vg1 10:31 Drug: morphine 4 mg Route: IVP; Site: right antecubital; vg1 13:54 Follow up: Response: No adverse reaction; No change in condition vg1 10:39 Drug: NS 0.9% 1000 ml Route: IV; Rate: 125 ml/hr; Site: right antecubital; vg1 11:35 Drug: Zofran (Ondansetron) 4 mg Route: IVP; Site: right antecubital; vg1 13:55 Follow up: Response: No adverse reaction vg1 11:37 Drug: Dilaudid (HYDROmorphone) 1 mg Route: IVP; Site: right antecubital; vg1 13:55 Follow up: Response: No adverse reaction; Pain is decreased vg1 12:42 Drug: Ancef (cefazolin) 1 grams Route: IVPB; Site: right antecubital; vg1 13:54 Follow up: Response: No adverse reaction vg1 13:54 Follow up: IV Status: Completed infusion vg1 13:11 Drug: Viscous Lidocaine Liquid (4 %) 5 ml Route: Mucous Membrane; vg1 18:11 Drug: Zofran (Ondansetron) 4 mg Route: IVP; Site: right antecubital; aj2 18:12 Drug: Dilaudid (HYDROmorphone) 1 mg Route: IVP; Site: right antecubital; aj2 Disposition Summary: 02/24/21 13:54 Hospitalization Ordered Hospitalization Status: Observation fausto Provider: Bailee Pryor cha Condition: Stable(02/24/21 13:54) fausto Problem: new(02/24/21 13:54) fausto Symptoms: have improved(02/24/21 13:54) fausto Bed/Room Type: Standard fausto Location: [facility] ER HOLD(02/24/21 22:12) cg Room Assignment: ERHOLD-(02/24/21 22:12) cg Diagnosis - Disorder of penis, unspecified - ischemic, constricting object, removed(02/24/21 fausto 13:54) - UTI/ Urinary tract infection, site not specified fausto Forms: - Medication Reconciliation Form fausto - SBAR form fausto Signatures: Dispatcher [employer] EDZackary Anderson MD MD cha Smirch, Shelby, RN RN Nola Carter, RN RN Lizzeth Shelby RN RN vg1 Link Anaya aj2 Corrections: (The following items were deleted from the chart) 13:34 11:13 TO fausto fausto 13:34 11:13 [facility] fausto fausto 13:34 11:13 Higher level of care fausto fausto 13:34 11:13 Stable fausto fausto 13:34 11:13 new fausto fausto 13:34 11:13 have improved fausto fausto 13:34 11:13 Disorder of penis, unspecified - CONSTRICTING RING AROUND PENIS, ISCHEMIC fausto [facility] 15:14 11:06 CORONAVIRUS+MR.LAB.BRZ ordered. EDPA EDPA 22:12 13:54 Telemetry/MedSurg (observation) hospital [facility] 22:12 13:[address] [facility]
[2021-02-24] MEDS ORDERED: BUPIVACAINE 0.5% PF 10 ML VIAL ONE (11:55)
[2021-02-24] MEDS ORDERED: LIDOCAINE 1% MPF 5 ML VIAL ONE (11:55)
[2021-02-24] MEDS ORDERED: HYDROMORPHONE HCL 1 MG/ML INJ ONE ×2 (11:57→18:24)
[2021-02-24] MEDS ORDERED: CEFAZOLIN/SWI 1gm 1 GM/10 ML SYR ONE (11:57)
[2021-02-24] MEDS ORDERED: LIDOCAINE VISCOUS 2% SOLN 15 ML UDC ONE (13:18)
[2021-02-24 13:19] LABS: Urine Blood 3+ (Negative); Urine Glucose Negative (Negative); Urine Protein Negative (Negative); Urine Specific Gravity 1.025 (1.005-1.030)
[2021-02-24 14:07] LABS: Absolute Lymphocytes (CBC) 0.4 K/uL (0.7-4.9); Basophils % 0.3 % (0-1.3); Hematocrit 44.4 % (39.6-49.0); Lymphocytes % 2.7 % (15.3-44.8); MPV 7.4 fL (7.6-11.3); RBC Red Blood Cell Count 5.22 M/uL (4.33-5.43)
[2021-02-24 14:20] LABS: Albumin 3.8 g/dL (3.4-5.0); Bilirubin Total 0.8 mg/dL (0.2-1.0); Potassium 4.3 mmol/L (3.5-5.1); Protein, Total 6.9 g/dL (6.4-8.2)
[2021-02-24 14:55] LABS: Blood Morphology Comment NOT SEEN (NOT SEEN); Platelet Estimate ADEQ; White Blood Cell Scan OK (OK)
--- NOTE | 2021-02-24 16:37 | P.HP ---
Certification for Inpatient Patient admitted to: Observation With expected LOS: <2 Midnights Patient will require the following post-hospital care: None Practitioner: I am a practitioner with admitting privileges, knowledge of patient current condition, hospital course, and medical plan of care. Services: Services provided to patient in accordance with Admission requirements found in Title 42 Section 412.3 of the Code of Federal Regulations Patient History Date of Service: 02/24/21 Reason for admission: Penile injury History of Present Illness: Patient is a 65yo who was admitted to the hospital with a penile injury. Patient had a penile ring that resulted in severe vasoconstriction of the shaft of the penis and resulted in the penile head becoming cyanotic. Patient had aspiration of blood from the penile head. Patient was able to get the penile ring slipped off. No other new complaints. Patient is clinically doing well. Matos catheter will be removed in the morning and anticipate discharge once the voids. Continue with antibiotic therapy. Allergies codeine Allergy (Intermediate, Verified 08/27/20 10:26) Anaphylaxis Home Medications: Sertraline [Zoloft*] 75 mg PO DAILY 01/15/16 lisinopriL [Lisinopril] 10 mg PO DAILY 01/15/16 Trazodone [Desyrel*] 150 mg PO BEDTIME 08/22/20 - Past Medical/Surgical History Diabetic: No -: HTN -: DEPRESSION -: Cholecystectomy - Family History Father Family History: Reviewed- Non-Contributory - Social History Smoking Status: Former smoker Alcohol use: No CD- Drugs: No Caffeine use: No Review of Systems 10-point ROS is otherwise unremarkable Physical Examination - Vital Signs Temperature: 98 F Blood Pressure: 140/80 Pulse: 88 Respirations: 20 Pulse Ox (%): 96 - Physical Exam General: Alert, In no apparent distress, Oriented x3 HEENT: Atraumatic, PERRLA, Mucous membr. moist/pink, EOMI, Sclerae nonicteric Neck: Supple, 2+ carotid pulse no bruit, No LAD, Without JVD or thyroid abnormality Respiratory: Clear to auscultation bilaterally, Normal air movement Cardiovascular: Regular rate/rhythm, Normal S1 S2, No murmurs Gastrointestinal: Normal bowel sounds, Soft and benign, Non-distended, No tenderness Musculoskeletal: No clubbing, No swelling, No tenderness Neurological: Normal gait, Normal speech, Normal strength at 5/5 x4 extr, Normal tone, Normal affect Lymphatics: No axilla or inguinal lymphadenopathy External genitalia: Edema - Studies Laboratory Data (last 24 hrs) 02/24/21 13:45: Sodium 139, Potassium 4.3, BUN 24 H, Creatinine 1.42 H, Glucose 107 H, Total Bilirubin 0.8, AST 51 H, ALT 56, Alkaline Phosphatase 53 02/24/21 13:45: WBC 13.50 H, Hgb 14.9, Hct 44.4, Plt Count 195 Assessment & Plan - Problems (Diagnosis) (1) Penile inflammation Current Visit: Yes Status: Acute - Plan PLAN; 1. IV antibiotics 2. Topical antibiotics 3. Pyridium 4. Dc Matos catheter in the morning 5. Once patient voiced anticipate discharge 6. GI and DVT prophylaxis Discharge Plan: Home Plan to discharge in: Greater than 2 days - Advance Directives Does patient have a Living Will: No Does patient have a Durable POA for Healthcare: No - Code Status/Comfort Care Code Status Assessed: Yes Code Status: Full Code Critical Care: No Time Spent Managing PTS Care (In Minutes): 45
[2021-02-24] MEDS: CEFTRIAXONE/SWI 1gm 1 GM/10 ML SYR IV ONE (19:50)
[2021-02-24] MEDS: NA CHLORIDE 0.9% 1,000 ML IV SCH (20:00)
[2021-02-24] MEDS ORDERED: CEFTRIAXONE 1000 MG/VIAL ONE (20:11)
[2021-02-24] MEDS ORDERED: LABETALOL HCL 100 MG/20 ML ONE (20:12)
[2021-02-24] MEDS: MORPHINE 2 MG/ML SYR IV PRN (20:15)
[2021-02-24] MEDS ORDERED: MORPHINE 2 MG/ML SYR ONE (20:35)
[2021-02-24] MEDS ORDERED: TRAZODONE 150 MG TAB ONE (20:37)
[2021-02-24] MEDS ORDERED: TRAZODONE 150 MG TAB PO SCH (21:00)
[2021-02-24 22:28] VITALS: BMI 26.8
[2021-02-24] MEDS ORDERED: HYDROMORPHONE HCL 0.5 MG/0.5 ML INJ IV ONE (22:31)
[2021-02-24 22:43] VITALS: O2SAT 98
[2021-02-24] MEDS ORDERED: HYDROMORPHONE HCL 0.5 MG/0.5 ML INJ ONE (23:13)
[2021-02-25] MEDS: NA CHLORIDE 0.9% 1,000 ML IV SCH (05:16)
[2021-02-25] MEDS ORDERED: NA CHLORIDE 0.9% 1,000 ML ONE (05:23)
--- NOTE | 2021-02-25 08:10 | P.DS ---
Discharge Date: 02/25/21 Disposition: ROUTINE DISCHARGE Discharge Condition: GOOD Reason for Admission: Penile injury - Problems (1) Penile inflammation Current Visit: Yes Status: Acute Brief History of Present Illness: Patient is a 65yo who was admitted to the hospital with a penile injury. Patient had a penile ring that resulted in severe vasoconstriction of the shaft of the penis and resulted in the penile head becoming cyanotic. Patient had aspiration of blood from the penile head. Patient was able to get the penile ring slipped off. No other new complaints. Patient is clinically doing well. Mcclellan catheter will be removed in the morning and anticipate discharge once the voids. Continue with antibiotic therapy. Hospital Course: Patient will have Dc Mcclellan catheter today. Once he voids he is stable for discharge. Continue with antibiotic therapy and ointment. Outpatient follow with PCP in 1 week. Outpatient follow-up with Urology in 2 weeks. Vital Signs/Physical Exam: Temp Pulse Resp BP Pulse Ox 98 F 88 20 140/80 96 02/25/21 08:09 02/25/21 08:09 02/25/21 08:09 02/25/21 08:09 02/25/21 08:09 General: Alert, In no apparent distress, Oriented x3 Laboratory Data at Discharge: WBC 13.50 K/uL (4.3-10.9) H 02/24/21 13:45 Hgb 14.9 g/dL (13.6-17.9) 02/24/21 13:45 Hct 44.4 % (39.6-49.0) 02/24/21 13:45 Plt Count 195 K/uL (152-406) 02/24/21 13:45 Sodium 139 mmol/L (136-145) 02/24/21 13:45 Potassium 4.3 mmol/L (3.5-5.1) 02/24/21 13:45 BUN 24 mg/dL (7-18) H 02/24/21 13:45 Creatinine 1.42 mg/dL (0.55-1.3) H 02/24/21 13:45 Glucose 107 mg/dL (74-106) H 02/24/21 13:45 Total Bilirubin 0.8 mg/dL (0.2-1.0) 02/24/21 13:45 AST 51 U/L (15-37) H 02/24/21 13:45 ALT 56 U/L (12-78) 02/24/21 13:45 Alkaline Phosphatase 53 U/L (45-117) 02/24/21 13:45 Home Medications: Sertraline [Zoloft*] 75 mg PO DAILY 01/15/16 lisinopriL [Lisinopril] 10 mg PO DAILY 01/15/16 Trazodone [Desyrel*] 150 mg PO BEDTIME 08/22/20 Physician Discharge Instructions: -OK TO DC IV AND DC HOME -RETURN TO THE ER IF SYMPTOMS WORSENS -CALL ME AT [phone] IF ANY QUESTIONS OR CONCERNS -FOLLOW-UP WITH UROLOGY NEEDED -FOLLOW-UP WITH PCP IN 1-2 WEEKS -PLEASE HAVE MCCLELLAN CATHETER REMOVED IN THE AM(PLEASE TRY TO EDUCATE PATIENT ON HOW TO REMOVE THE MCCLELLAN CATHETER); IF UNABLE TO VOID IN 6HRS NOTIFY MD OR UROLOGY Diet: AHA Activity: Fall precautions Followup: OOT,OOT [Primary Care Provider] - Time spent managing pt's care (in minutes): 35
[2021-02-25] MEDS ORDERED: SERTRALINE HCL 50 MG TAB PO SCH (09:00)
[2021-02-25] MEDS ORDERED: MORPHINE 2 MG/ML SYR ONE (09:09)
[2021-02-25] MEDS: MORPHINE 2 MG/ML SYR IV PRN (09:12)
[2021-02-25 14:30] VITALS: BP 127/78; TEMP 97.8
== END 2021-02-25 15:00 | disposition home or self-care (01) ==
LOC: ER 09:56 → ERHOLD 19:18
PROVIDERS: ADMIT Hospitalist; ATTEND Hospitalist
PROC: 0T9B70Z Drainage of Bladder with Drainage Device, Via Natural or Artificial Opening (ICD-10-PCS; principal; 2021-02-25)
DX: N48.29 Other inflammatory disorders of penis (principal); N39.0 Urinary tract infection, site not specified; I10 Essential (primary) hypertension; E78.5 Hyperlipidemia, unspecified; F41.9 Anxiety disorder, unspecified; F32.9 Major depressive disorder, single episode, unspecified; Z88.6 Allergy status to analgesic agent; Z20.822 Contact with and (suspected) exposure to COVID-19
CPT/HCPCS: 87088; 85025; 87086; 36415; 87077; 87186; 81003; 80053; 51702; U0003; J2270 ×2; J1170 ×3; J0690; J7030 ×3; J2405 ×3; G0378 ×3